=== PATIENT | female | born 1970 | race Caucasian/White ===

== ENCOUNTER 2020-10-14 07:54 | Emergency (ER) | payer BC ==
[2020-10-14] MEDS: Nitroglycerin 0.4 MG Tab.SL SL PRN ×2 (08:05→08:18)
[2020-10-14] MEDS ORDERED: Morphine 4 MG/ML VIAL IVPUSH ONE (08:12)
[2020-10-14] MEDS ORDERED: LORazepam 2 MG/ML SDV IVPUSH ONE (08:38)
[2020-10-14] MEDS ORDERED: Morphine 2 MG/ML SYRINGE ONE (08:39)
[2020-10-14] MEDS ORDERED: Morphine 4 MG/ML VIAL ONE (08:40)
[2020-10-14] MEDS ORDERED: LORazepam 2 MG/ML SDV ONE (08:51)
[2020-10-14] MEDS ORDERED: Ketorolac 30 MG/ML SDV IVPUSH ONE (09:03)
[2020-10-14] MEDS ORDERED: Ketorolac 30 MG/ML SDV ONE (09:14)
--- NOTE | 2020-10-14 11:24 | CR ---
DATE OF SERVICE: 10/14/20 CLINICAL DATA: Chest pain. AP CHEST: No priors. The heart size is normal. The lungs are clear. No pneumothorax. No pleural effusions. No evidence of acute intrathoracic disease. [id number] [facility]
--- NOTE | 2020-10-14 18:49 | ER ---
HISTORY OF PRESENT ILLNESS: A 50-year-old lady who comes in by private car with complaints of chest pain and shortness of breath that has been ongoing for about 3 days and now today, it seems to get worse. She has no problems with nausea or vomiting. She tells me that she has been under a lot of stress lately. She has a stepson who just last Saturday and he was a teenager from some form of blood infection. The patient also tells me that she quit smoking about 3 weeks ago and is currently taking Chantix. She denies any problems with nausea, vomiting, or diarrhea. PAST MEDICAL HISTORY: Includes anxiety and depression. OBJECTIVE: GENERAL APPEARANCE: The patient is awake and alert. She has mild respiratory distress at this time. VITAL SIGNS: Reviewed. Blood pressure 137/83. LUNGS: Clear to auscultation. CARDIAC: Heart sounds distinct without murmurs. The patient has definite pain with even light touch on the left anterior chest wall. SKIN: Intact, warm, and dry. LABORATORY AND IMAGING DATA: Labs include a CBC. This is normal. CMP is basically normal except for mildly elevated liver enzymes. Troponin is normal, and COVID test is negative. Chest x-ray was also obtained and is unremarkable. This then led to a D-dimer, which is 200 or normal. INITIAL TREATMENT: EKG was obtained showing a normal sinus rhythm. The patient was given nitroglycerin once and it seemed to bring her pain down slightly. She was given a second nitroglycerin and it did not make much difference. She also took 4 baby aspirin. At this point, an IV was started and she was given morphine 4 mg IV. This seemed to help with her breathing some, but then she would still go back into episodes of mild shortness of breath. At this point, the patient was given Ativan 1 mg IV and within about 20 minutes, it just seemed like she had calmed down significantly. Her came into the room and she became quite agitated once again leading to recurrence of her symptoms temporarily. He left for a while and the patient settled down once again. We monitored the patient for 4 hours and repeated an EKG and troponin and they are both still normal or negative. DIAGNOSIS: Acute anxiety attack. TREATMENT PLAN: The patient does have anxiety medication. She takes alprazolam as needed. She did not take it today for some reason. She also is on an SSRI. I advised the patient to get back on her medication use or alprazolam regularly for a day or 2 and then go back to as needed. I will give her Flexeril to take for a few days for chest wall pain and she can also use an [id number] NSAIDs such as Aleve or ibuprofen for a few days. She is to go home and rest for a day or 2 and then increase activity as tolerated. Followup should be in the clinic within the next 3 to 4 days, sooner p.r.n. ANGELINA/MODL /[id number]
== END 2020-10-14 13:10 | disposition home or self-care (01) ==
LOC: LB.ED 07:57 → MERGE 07:57 → LB.ED 13:10
DX: F41.9 Anxiety disorder, unspecified (principal); Z20.822 Contact with and (suspected) exposure to COVID-19
CPT/HCPCS: 36415; 71045; 80053; 84484; 85025; 85379; 87635; 93005; 96374; 96375; 99285; J1885; J2060; J2270; 99284; U0002

== ENCOUNTER 2024-04-13 09:05 | Emergency (ER) | payer BC ==
[2024-04-13] MEDS: Diazepam 10 MG Tab PO ONE ×2 (09:45→11:44)
[2024-04-13 09:46] LABS: HEMATOCRIT 44.3 % (37.0-47.0); HEMOGLOBIN 15.1 g/dL (11.5-16.5); MEAN CORPUSCULAR HEMOGLOBIN 32.8 pg (27.0-32.0); MEAN CORPUSCULAR HGB CONC 34.1 g/dL (31.0-35.0); MEAN PLATELET VOLUME 9.2 fL (6.0-10.0); RED BLOOD CELL COUNT 4.6 M/uL (3.80-5.80); RED CELL DISTRIBUTION WIDTH 12.5 % (11.0-16.0); WHITE BLOOD CELL COUNT,WBC 7.8 K/uL (4.0-11.0)
[2024-04-13 10:05] LABS: A/G RATIO 1.2 (0.8-2.0); ALANINE AMINOTRANSFERASE,ALT 88 U/L (12-78); ALKALINE PHOSPHATASE 113 U/L (46-116); ASPARTATE AMNIOTRANSFERASE,AST 53 U/L (15-37); BILIRUBIN TOTAL 0.5 mg/dL (0.0-1.0); BLOOD UREA NITROGEN,BUN 8 mg/dL (8-26); BUN/CREATININE RATIO 11.8 (6-25); CALCIUM 9.2 mg/dL (8.5-10.1); CARBON DIOXIDE,CO2 27.3 mmol/L (21.0-32.0); CHLORIDE,CL 106 mmol/L (98-107); CREATININE 0.68 mg/dL (0.55-1.02); ESTIMATED GFR 104 mL/min (>60); GLUCOSE RANDOM 126 mg/dL (74-100); POTASSIUM,K 3.3 mmol/L (3.5-5.1); PROTEIN TOTAL,TP 7.4 g/dL (6.4-8.2); SODIUM,NA 144 mmol/L (136-145)
[2024-04-13 10:09] LABS: AMPHETAMINES SCREEN, URINE NEGATIVE (NEGATIVE); BARBITURATE SCREEN,URINE NEGATIVE (NEGATIVE); BENZODIAZEPINES SCREEN,URINE POSITIVE (NEGATIVE); METHADONE SCREEN, URINE NEGATIVE (NEGATIVE); METHAMPHETAMINES SCREEN, URINE NEGATIVE (NEGATIVE); OXYCODONE SCREEN,URINE NEGATIVE (NEGATIVE)
[2024-04-13 10:10] LABS: APPEARANCE,URINE CLEAR (CLEAR); BILIRUBIN,URINE NEGATIVE (NEGATIVE); COLOR,URINE YELLOW; GLUCOSE,URINE NEGATIVE (NEGATIVE); KETONES,URINE NEGATIVE (NEGATIVE); OCCULT BLOOD,URINE TRACE-LYSED (NEGATIVE); PH,URINE 5.5 (5.0-8.0); PROTEIN,URINE TRACE mg/dL (NEGATIVE); THC SCREEN,URINE 50 NG/ML POSITIVE (NEGATIVE)
[2024-04-13 10:11] LABS: CALCIUM OXALATE CRYSTALS,URINE MODERATE /HPF; LEUKOCYTE ESTERASE,URINE TRACE (NEGATIVE); NITRITE,URINE NEGATIVE (NEGATIVE); RBC,URINE NOT SEEN /HPF; SQUAMOUS EPITHELIAL CELLS,UR FEW /HPF; UROBILINOGEN,URINE 0.2 E.U./dL (0.2-1.0); WBC,URINE 0-5 /HPF
[2024-04-13 10:12] LABS: BACTERIA,URINE MANY /HPF
[2024-04-13 12:30] LABS: MAGNESIUM 1.9 mg/dL (1.8-2.4); TSH ULTRASENSITIVE 1.242 uIU/mL (0.358-3.740)
[2024-04-13 12:39] LABS: ETHANOL BLOOD MEDICAL < 3.0 mg/dL (<3.0)
[2024-04-13] MEDS: Diazepam 5 MG Tab ONE ×2 (13:21)
[2024-04-13] MEDS: Ciprofloxacin 500 MG Tab PO ONE (13:29)
[2024-04-13] MEDS: Potassium Chloride 10 MEQ Tab.ER PO ONE (13:29)
[2024-04-13] MEDS: Haloperidol 1 MG Tab PO ONE (15:12)
== END 2024-04-13 16:25 ==
LOC: LB.ED 09:05
DX: R45.851 Suicidal ideations (principal); F41.8 Other specified anxiety disorders; Z98.84 Bariatric surgery status; Z88.2 Allergy status to sulfonamides; Z88.5 Allergy status to narcotic agent; Z91.018 Allergy to other foods; Z79.899 Other long term (current) drug therapy
CPT/HCPCS: 36415; 80053; 80307; 81001; 83735; 84443; 85027; 87086; 87635; 99285; A9270; U0002

== ENCOUNTER 2024-11-08 08:55 | Emergency (ER) | payer BC ==
[2024-11-08 09:24] LABS: GLUCOSE,URINE 100 mg/dL (NEGATIVE); OCCULT BLOOD,URINE LARGE (NEGATIVE)
[2024-11-08 09:27] LABS: APPEARANCE,URINE CLOUDY (CLEAR)
[2024-11-08 09:32] LABS: EPITHELIAL CELLS,URINE FEW /HPF; WBC CLUMPS,URINE OCCASIONAL /HPF
== END 2024-11-08 10:00 | disposition home or self-care (01) ==
LOC: LB.ED 08:55
DX: N39.0 Urinary tract infection, site not specified (principal); Z88.5 Allergy status to narcotic agent; Z91.018 Allergy to other foods
CPT/HCPCS: 81001; 99283; A9270